=== PATIENT | female | born 1960 | race Native Hawaiian/Other Pacific Islander ===

== ENCOUNTER 2018-04-22 15:37 | Emergency (ER) | payer OTHER ==
[~2018-04-22] VITALS: Ht 165.1 cm; Wt 93.0 kg
[2018-04-22 16:55] LABS: PLATELET COUNT 366 K/uL (152-353)
[2018-04-22 17:02] LABS: POTASSIUM 3.6 mmol/L (3.6-5.2); SODIUM 139 mmol/L (136-145)
[2018-04-22 19:10] VITALS: BP 141/69; TEMP 98.4
== END 2018-04-22 19:12 | disposition home or self-care (01) ==
LOC: ED 15:37
PROVIDERS: Family Medicine
DX: K21.9 Gastro-esophageal reflux disease without esophagitis (principal); M54.9 Dorsalgia, unspecified
CPT/HCPCS: 36415; 80053; 81000; 82550; 84484; 85027; 85379; 93005; 99283

== ENCOUNTER 2020-05-10 11:06 | Emergency (ER) | payer OTHER ==
[~2020-05-10] VITALS: Ht 165.1 cm; Wt 89.8 kg
[2020-05-10 11:20] VITALS: TEMP 97.3
[2020-05-10 15:22] VITALS: BP 149/84
== END 2020-05-10 15:22 | disposition home or self-care (01) ==
LOC: ED 11:06
DX: J32.8 Other chronic sinusitis (principal); R51.9 Headache, unspecified; M79.10 Myalgia, unspecified site; R05 Cough; Z20.828 Contact with and (suspected) exposure to other viral communicable diseases; F17.210 Nicotine dependence, cigarettes, uncomplicated
CPT/HCPCS: 87502; 87635; 87651; 99283; U0003

== ENCOUNTER 2021-06-02 13:44 | Emergency (ER) | payer OTHER ==
[~2021-06-02] VITALS: Ht 165.1 cm; Wt 83.9 kg
[2021-06-02 15:28] VITALS: BP 177/97; TEMP 97.9
== END 2021-06-02 15:28 | disposition home or self-care (01) ==
LOC: ED 13:44
DX: M54.59 Other low back pain (principal); M53.3 Sacrococcygeal disorders, not elsewhere classified
CPT/HCPCS: 80307; 81000; 96372; 99283; J1885; J2175; J2405

== ENCOUNTER 2022-03-22 14:42 | Emergency (ER) | payer OTHER ==
[~2022-03-22] VITALS: Ht 165.1 cm; Wt 90.7 kg
[2022-03-22 14:45] VITALS: BP 157/89; TEMP 97.8
== END 2022-03-22 15:45 | disposition home or self-care (01) ==
LOC: ED 14:42
DX: J11.1 Influenza due to unidentified influenza virus with other respiratory manifestations (principal); F17.210 Nicotine dependence, cigarettes, uncomplicated; Z20.822 Contact with and (suspected) exposure to COVID-19
CPT/HCPCS: 87502; 87635; 87651; 99283; U0003